=== PATIENT | male | born 1990 | race Caucasian/White ===

== ENCOUNTER 2017-08-28 02:01 | Emergency (ER) | payer SELFPAY ==
[~2017-08-28] VITALS: Ht 182.9 cm; Wt 66.8 kg
[~2017-08-28 02:01] MED LIST: ESCITALOPRAM; SEROQUEL
[2017-08-28 02:03] VITALS: BP 142/82; TEMP 98.1
[2017-08-28] MEDS ORDERED: NORCO 325 MG-51 TAB PO (05:02)
[2017-08-28 05:52] VITALS: PULSE 80
== END 2017-08-28 05:00 | disposition home or self-care (01) ==
LOC: COL.ER 02:01
DX: S60.011A Contusion of right thumb without damage to nail, initial encounter (principal); W22.8XXA Striking against or struck by other objects, initial encounter; Y92.009 Unspecified place in unspecified non-institutional (private) residence as the place of occurrence of the external cause
CPT/HCPCS: J1170

== ENCOUNTER 2018-02-11 05:25 | Emergency (ER) | payer SELFPAY ==
[~2018-02-11] VITALS: Ht 182.9 cm; Wt 68.2 kg
[~2018-02-11 05:25] MED LIST changes: +NORCO 325 MG-51 TAB PO
[2018-02-11 05:31] VITALS: BP 131/98; TEMP 98.3
[2018-02-11 06:16] VITALS: PULSE 68
== END 2018-02-11 06:17 | disposition home or self-care (01) ==
LOC: COL.ER 05:25
DX: S60.222A Contusion of left hand, initial encounter (principal); R20.2 Paresthesia of skin; F17.210 Nicotine dependence, cigarettes, uncomplicated; W20.8XXA Other cause of strike by thrown, projected or falling object, initial encounter